=== PATIENT | male | born 1980 | race Caucasian/White ===

== ENCOUNTER 2017-10-30 21:23 | Emergency (ER) | payer OTHER ==
[~2017-10-30] VITALS: Ht 177.8 cm; Wt 79.4 kg
[2017-10-30 21:29] VITALS: BP 120/77
[2017-10-30 22:42] LABS: ABSOLUTE BASOPHIL COUNT 0 /CUMM (0.0-0.2); ABSOLUTE EOSINOPHIL COUNT 0 /CUMM (0.0-0.7); ABSOLUTE GRANULOCYTE CT 18.3 /CUMM (1.4-6.5); ABSOLUTE LYMPH COUNT 1.9 /CUMM (1.2-3.4); BASOPHIL % 0.1 % (0.0-2.0); EOSINOPHIL % 0.1 % (0-5); GRANULOCYTE % 86.3 % (42.2-75.2); HEMATOCRIT 38.9 % (42-52); MEAN CORPUSCULAR HGB 29.9 PG (27.0-31.0); MEAN CORPUSCULAR HGB CONC 34.3 G/DL (33.0-37.0); MEAN CORPUSCULAR VOLUME 87.3 FL (80.0-94.0); MEAN PLATELET VOLUME 9.3 FL (7.4-10.4); PLATELET COUNT 245 /CUMM (130-400); RBC DISTRIBUTION WIDTH 13.1 % (11.5-14.5); RED BLOOD CELL CT 4.46 /CUMM (4.70-6.10); WHITE BLOOD CELL COUNT 21.2 /CUMM (4.8-10.8)
--- NOTE | 2017-10-30 23:02 | RADIOLOGY REPORT ---
EXAMINATION: XR SHOULDER, LEFT CLINICAL INFORMATION: Fall. Pain. COMPARISON: None TECHNIQUE: 3 views, 5 images of the left shoulder. FINDINGS: No acute fracture or dislocation. The humeral head articulates appropriately with the glenoid. The acromioclavicular joint is intact with mild degenerative changes noted. The visualized lung is clear. IMPRESSION: No fracture or malalignment.
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
== END 2017-10-31 01:07 ==
LOC: ERH 21:23
PROVIDERS: Physician Assistant Medical
DX: S36.039A Unspecified laceration of spleen, initial encounter (principal); V18.0XXA Pedal cycle driver injured in noncollision transport accident in nontraffic accident, initial encounter; Y92.9 Unspecified place or not applicable; Y93.55 Activity, bike riding; M25.512 Pain in left shoulder; R10.9 Unspecified abdominal pain; R07.81 Pleurodynia
CPT/HCPCS: 73030-LT; 74177; 99291; G0480